=== PATIENT | female | born 1965 | race Caucasian/White ===

== ENCOUNTER → 2020-10-15 | Outpatient (CLI) | payer BC | LOC: MAMO 09:27 | DX: Z12.31 Encounter for screening mammogram for malignant neoplasm of breast (principal); N63.10 Unspecified lump in the right breast, unspecified quadrant | CPT/HCPCS: 77063; 77067 ==

== ENCOUNTER → 2020-10-28 | Outpatient (CLI) | payer BC | LOC: MAMO 09:29 | DX: R92.8 Other abnormal and inconclusive findings on diagnostic imaging of breast (principal); N63.10 Unspecified lump in the right breast, unspecified quadrant | CPT/HCPCS: 76641-RT; 77065 ==

== ENCOUNTER → 2021-03-05 | Outpatient (CLI) | payer BC | LOC: EMI 09:20 → KOH-I 03-09 08:15 | DX: M51.06 Intervertebral disc disorders with myelopathy, lumbar region (principal) | CPT/HCPCS: 72158; A9577 ==